=== PATIENT | male | born 1990 | race Caucasian/White ===

== ENCOUNTER 2019-09-06 21:43 | Emergency (ER) | payer SELFPAY ==
[~2019-09-06] VITALS: Ht 170.2 cm; Wt 91.6 kg
[2019-09-06 22:01] VITALS: BP 148/80
--- NOTE | 2019-09-06 22:07 | NUR ---
PT AMBULATED TO BED #6
--- NOTE | 2019-09-06 22:15 | NUR ---
29 YEAR OLD MALE COMPLAINS OF PASSING OUT. GIRLFRIEND STATES THAT PATIENT FELL FACE FORWARD ONTO FLOOR AND BECAME UNCONSCIOUS FOR 10 SECONDS. PATIENT STATES HE FELT LIGHTHEADED BEFORE PASSING OUT. PATIENT DENIES ANY DRUG USE OR ALCOHOL. NO VISIBLE LACERATIONS. PATIENT STATES THAT THIS HAPPENED TO HIM LAST YEAR WELL. PATIENT AOX4, BREATHING EVEN AND UNLABORED, SKIN WARM AND DRY. BED IN LOWEST POSITION, LOCKED, BED RAIL UPX1. PMH - DENIES
--- NOTE | 2019-09-06 22:23 | NUR ---
lab at bedside.
[2019-09-06 22:32] LABS: BASOPHILS % (AUTO) 0.4 % (0.0-2.0); EOSINOPHILS # (AUTO) 0.2 K/uL (0-0.4); EOSINOPHILS % (AUTO) 2.2 % (0.0-4.0); HEMATOCRIT 40.2 % (36-52); HEMOGLOBIN 13.5 g/dL (12.0-18.0); LYMPHOCYTES % (AUTO) 42.5 % (20.5-51.1); MEAN CORPUSCULAR HEMOGLOBIN 31 pg (27-31); MEAN CORPUSCULAR HGB CONC 34 g/dL (33-37); MEAN CORPUSCULAR VOLUME 91.7 fL (80-94); MONOCYTES # (AUTO) 0.4 K/uL (0.8-1.0); NEUTROPHILS # (AUTO) 3.5 K/uL (1.8-7.7); NEUTROPHILS % (AUTO) 48.9 % (42.2-75.2); PLATELET COUNT (AUTO) 207 K/uL (140-450); RED BLOOD CELL COUNT(AUTO) 4.38 MIL/uL (4.20-6.10); WHITE BLOOD COUNT (AUTO) 7.1 K/uL (4.8-10.8)
[2019-09-06 22:42] LABS: ANION GAP 10.8 (8-16); CREATININE 1.2 mg/dL (0.6-1.3); POTASSIUM 3.8 mmol/L (3.5-5.1)
[2019-09-06 23:38] VITALS: BP 148/80
--- NOTE | 2019-09-06 23:38 | NUR ---
Patient discharged with v/s stable. Written and verbal after care instructions given and explained. Patient verbalized understanding. Ambulatory with steady gait. All questions addressed prior to discharge. Advised to follow up with PMD.
== END 2019-09-06 23:38 | disposition home or self-care (01) ==
LOC: MED 21:43 → EDSEX 21:43 → MED 23:38
DX: R55 Syncope and collapse (principal); R42 Dizziness and giddiness
CPT/HCPCS: 36415; 71045; 80048; 84484; 85025; 93005; 99284; Q0092

== ENCOUNTER 2020-08-28 18:19 | Emergency (ER) | payer SELFPAY ==
[~2020-08-28] VITALS: Ht 167.6 cm; Wt 86.6 kg
[2020-08-28 18:23] VITALS: BP 117/71
--- NOTE | 2020-08-28 18:26 | NUR ---
PT AMBULATED TO BED 12.
--- NOTE | 2020-08-28 18:30 | NUR ---
ERMD at bedside evaluating pt
--- NOTE | 2020-08-28 18:32 | NUR ---
30 Y/O male coming from home with c/c back pain x 1 hour. Pt states he picked up his child and heard a pop/crack to his lower back region. Pt states sudden onset back pain as sharp/intermittent 8/10, non-radiating pain that is alleviated with rest. Pt also states he had tingling to bilateral hands and blurry vision prior to the back pain. Pt denies abdominal or pelvic pain, N/V, SOB, chest pain. Pt placed onto satellite project site monitor, blood pressure cuff, pulse ox. Lung sounds clear. VSS. Bed locked in lowest position, side rails x 1, call light in reach. PMH/Meds: Denies NKA
[2020-08-28] MEDS ORDERED: KETOROLAC 60 MG/2 ML VIAL IM ONE (18:35)
--- NOTE | 2020-08-28 18:35 | NUR ---
ERMD at bedside with ultrasound examining pt
--- NOTE | 2020-08-28 18:41 | NUR ---
X-ray transported patient via wheelchair. Pt disconnected from classroom monitor.
--- NOTE | 2020-08-28 18:57 | NUR ---
Pt returned from x-ray and placed back onto night monitor. Bed locked in lowest position, side rail x1, call light in reach
--- NOTE | 2020-08-28 19:14 | NUR ---
REPORT RECEIVED FROM FLORINA KASPER FOR CONTINUITY OF CARE
--- NOTE | 2020-08-28 19:14 | NUR ---
Report and continuation of care given to MAJO Victor.
[2020-08-28 19:30] VITALS: BP 117/71
--- NOTE | 2020-08-28 19:30 | NUR ---
Patient discharged with v/s stable. Written and verbal after care instructions given and explained. Patient alert, oriented and verbalized understanding of instructions. Ambulatory with steady gait. All questions addressed prior to discharge. ID band removed. Patient advised to follow up with PMD. Rx of NAPROSYN, LIDODERM, FLEXERIL given. Patient educated on indication of medication including possible reaction and side effects. Opportunity to ask questions provided and answered.
== END 2020-08-28 19:30 | disposition home or self-care (01) ==
LOC: MED 18:19
DX: M54.5 Low back pain (principal)
CPT/HCPCS: 72100; 96372; 99284; J1885